=== PATIENT | female | born 1970 | race Caucasian/White ===

== ENCOUNTER → 2019-08-07 09:48 | Day surgery (SDC) | payer OTHER ==
[~2019-08-07 09:48] MED LIST: Buffered Lidocaine 1% SYRIN* 1 ML/SYRINGE INTRADERM ONE; Bupivacaine 0.5% W/EPI SDV* 10 ML VIAL INJ ONE; Dexamethasone IV* 4 MG/ML 1 ML (4 MG) IV SLOW PU ONE; Dexamethasone IV* 4 MG/ML 1 ML (4 MG) ONE; DiMENhydriNATE IV* 50 MG/ML VIAL IV PUSH PRN; EPINEPHRINE 1 MG/ML 1 ML VIAL ONE; Famotidine IV* 10 MG/ML 2 ML (20 mg) IV ONE; Famotidine IV* 10 MG/ML 2 ML (20 mg) ONE; Ketorolac INJ* 30 MG/ML 1 ML VIAL IV PRN; Lactated Ringers 1000 ML Bag* 1,000 ML IV SCH; Lidocaine 1% MPF ** 5 ML VIAL ONE; Lidocaine 2% PF * 5 ML VIAL ONE; Midazolam* 1 MG/ML 2 ML VIAL (2 MG) ONE; Naloxone* 0.4 MG/ML 1 ML VIAL IV PRN; Ondansetron INJ* 2 MG/ML VIAL ONE; Propofol* 10 MG/ML 20 ML BTL ONE; ROPIVACAINE 5 MG/ML 30 ML BTL (0.5%) ONE; ceFAZolin 2 GM in NS PREMIX(*) 2 GM/100 ML BAG IVPB ONE; fentaNYL* 50 MCG/ML 2 ML VIAL (100 MCG VIAL) IV PRN; fentaNYL* 50 MCG/ML 2 ML VIAL (100 MCG VIAL) ONE
[2019-08-07 15:16] VITALS: BP 137/81
--- NOTE | 2019-08-08 23:35 | OP ---
OPERATIVE REPORT: DATE OF OPERATION: 08/07/19 DATE OF : 70 SURGEON: Jd Scruggs MD MEDICAL RECEPTION SPECIALIST: ELEAZAR Alexis ANESTHESIOLOGIST: Dr. Ace White. ANESTHESIA: General anesthesia, regional interscalene block anesthesia, local anesthesia using 10 cc of Marcaine 0.5% with epinephrine. PRE-OP DIAGNOSES: 1. Right shoulder subacromial bursitis, rotator cuff tendinitis. 2. Right shoulder possible partial-thickness tear, supraspinatus, subscapularis. 3. Right shoulder possible biceps tendinosis and/or subluxation, possible superior labrum tear. POST-OP DIAGNOSES: 1. Right shoulder subacromial bursitis, rotator cuff tendinitis. 2. Right shoulder partial-thickness tear, supraspinatus, undersurface, and bursal sided. 3. Right shoulder proximal biceps tendinosis. OPERATIVE PROCEDURE: 1. Right shoulder arthroscopic rotator cuff tendon repair with Regeneten biologic patch. 2. Right shoulder arthroscopic subacromial decompression. 3. Right shoulder arthroscopic distal clavicle resection. 4. Right shoulder open proximal biceps tenodesis. INDICATIONS: The patient is a 48-year-old woman, right hand dominant, who developed pain in the right shoulder at work on 01/11/19. She continued to have that pain for the next 7 months. The patient tried a full spectrum of nonoperative management, but responded insufficiently. Above-mentioned diagnoses were made preoperatively by history, exam, and MRI. The patient preferred biceps tenodesis to tenotomy if the biceps or superior labrum required treatment. Discussed risks and potential complications of surgery. ANTIBIOTICS: Ancef 2 g IV. IV FLUIDS: See Anesthesia note. [id number] TIME: 57 minutes. COMPLICATIONS: None. SPECIMEN: None. IMPLANTS: [employer] Regeneten biologic patch, size medium, x1. Arthrex proximal biceps tenodesis button x1. DESCRIPTION OF PROCEDURE: The patient signed a written consent in preoperative holding. Operative extremity was marked in preoperative holding. Regional interscalene nerve block was performed in preoperative holding. The patient was taken back to the operating room, placed supine on the operating room table. Sedated and intubated. Turned into the lateral decubitus position. Street bag hardened. Axillary roll. All bony prominences padded. Longitudinal traction 15 pounds. Right shoulder prepped and draped. Surgical time-out performed. Infused 30 cc of normal saline into the glenohumeral joint from posterior. Established posterior glenohumeral joint portal using standard technique. Diagnostic arthroscopy revealed no loose body. No significant articular cartilage damage. There is clear tearing on the undersurface of the anterior aspect of the supraspinatus. No subscapularis tendon tear noted. The long head biceps tendon did not seem subluxed medially, but there was synovitis along it, including about the proximal biceps anchor. Started an anterior glenohumeral joint portal under direct visualization. I probed biceps. Decided that there was sufficient evidence of inflammation along it to indicate treatment. Entered scissors from anterior and cut the biceps near its origin. Next, I entered arthroscopic shaver. Debrided the undersurface of the anterior aspect of the supraspinatus. Once the torn tissue was debrided, I noted that there was very little rotator cuff anchor, footprint of bone exposed, only perhaps 1 mm. The amount of torn tissue medial to that was only several millimeters at most. Low- grade thickness undersurface tear. I removed fluid and instruments from the glenohumeral joint and moved to the subacromial space, anterior and posterior. I established lateral and posterolateral portals under direct visualization. I entered an arthroscopic shaver and debrided subacromial bursitic tissue from that space. I examined the bursal side of the rotator cuff tendons. There was a significant amount of inflammation and the lowest grade of partial-thickness tearing diffusely a millimeter here and there. I decided to place a biologic patch. This was because of the undersurface tearing as well as a slightly shredded torn appearance superiorly. Next performed subacromial decompression. With an arthroscopic bur, I smoothed out the undersurface of the anterior hook of the acromion. Next, introduced the Regeneten biologic patch, size medium. Used PLLA evan to anchor the patch in place over the supraspinatus. The patch was very stable with movement of the humerus. Next moved to the AC joint. Debrided synovitic tissue with electrocautery device and then used a bur to debride 8 mm of the distal end of the clavicle. Next, closed skin incisions with [id number] and 12 stitches using nylon 3- 0 suture. Took the right upper extremity out of traction. Converted the patient to a lazy lateral decubitus position. Made longitudinal incision about the anteromedial upper arm. Dissected down to bicipital groove. Placed retractors. Removed the long head biceps tendon. Debrided the bone of the bicipital groove. Passed a Beath pin unicortically. Placed 3 stitches using fiber whip suture in the long head biceps tendon. Loaded a button. Passed it through bone and flipped it and tied a knot. I tied a second knot after having used a free needle. I removed excess biceps tendon and excess suture. Irrigation. Closure of the subcutaneous tissue with buried simple stitches using Vicryl 3-0 suture. Closure of the skin with a subcuticular running stitch using Monocryl 3-0 suture. Mastisol, Steri- Strips, local anesthesia. 4x4 and Tegaderm for the distal incision. Xeroform, 4x4s, ABDs, and foam tape for the arthroscopic incisions. Sling and abduction pillow. The patient was awakened, extubated, and transferred to the PACU. DISPOSITION: Wound care instructions are provided. Percocet for pain control, Keflex for infection prophylaxis. Follow up in clinic with me in 10 to 14 days. The patient will start physical therapy immediately. [id number]/CPS #: [id number] MALIA
== END | disposition home or self-care (01) ==
LOC: OR 09:48
PROVIDERS: ATTEND Orthopaedic Surgery
DX: S46.011A Strain of muscle(s) and tendon(s) of the rotator cuff of right shoulder, initial encounter (principal); X50.3XXA Overexertion from repetitive movements, initial encounter; Y93.89 Activity, other specified; Y92.512 Supermarket, store or market as the place of occurrence of the external cause; Y99.0 Civilian activity done for income or pay; M75.51 Bursitis of right shoulder; M75.21 Bicipital tendinitis, right shoulder; G89.18 Other acute postprocedural pain; I10 Essential (primary) hypertension; R73.03 Prediabetes; Z72.0 Tobacco use
CPT/HCPCS: C1713; C1776; J0690; J1100; J2250; J2405; J2704; J2795; J3010